=== PATIENT | female | born 1975 | race Caucasian/White ===

== ENCOUNTER 2017-08-25 10:50 | Outpatient (RCR) | payer OTHER ==
[2017-08-18 11:03] VITALS: BP 126/83
[2017-08-18 11:36] LABS: PLATELET COUNT, AUTOMATED 137 K/uL (150-450)
[~2017-08-25 10:50] MED LIST: GLUC500T22 PO; NITR-105 PO; TAMO20TA24 PO
[2017-08-25 10:57] VITALS: BP 115/79
--- NOTE | 2017-08-25 19:01 | ONCOLOGY FOLLOW UP NOTE ---
EVENT DATE: August 25, 2017 DIAGNOSES Stage IA (pT1c pN0 cM0) right breast carcinoma. CHIEF COMPLAINT Patient is here today for followup of her right breast cancer. ONCOLOGY HISTORY Patient is a 42-year-old female who was diagnosed in 2013 with right breast cancer after an abnormal mammogram. 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 I do not have any records, but all of this information from the patient. According to the patient her tumor size was nearly 1 cm in size and sentinel lymph node was negative for metastasis. Pathological marker showed positive ER/SD and negative HER2/coral. Her grade of the tumor was grade 2/3. Patient had adjuvant radiation therapy followed by adjuvant hormonal therapy with tamoxifen started in December 2013. As per patient , she developed a skin rash with coated tamoxifen, and after that with change of the brand of tamoxifen she did fine. She has some problems with tamoxifen like gaining weight, development of ovarian cyst and breast bone pain some times , but other than that she is doing fine. HISTORY OF PRESENT ILLNESS Patient is here today for followup of her left breast cancer. She is doing fine , except that she has a tough time to lose weight. She continues to gain weight with the treatment with Tamoxifen. She is complaining of recurrent pain in her right chest wall after her breast surgery, but other than that actually she is doing very well. PAST MEDICAL HISTORY Insignificant except for right breast cancer. PAST SURGICAL HISTORY Back surgery in 2001, abdominoplasty in 2008, lumpectomy and sentinel lymph node biopsy of the right side in 2013. FAMILY HISTORY Negative for cancer or blood diseases. SOCIAL HISTORY Patient is with two children. 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 Denies any abuse of tobacco or illicit drugs. She drinks wine on a every basis. CURRENT MEDICATIONS 1. Glucosamine. 2. Supplement for her nails. 3. Tamoxifen 20 mg daily. ALLERGIES PENICILLIN which causes anaphylaxis. SULFA which causes skin rash. REVIEW OF SYSTEMS CONSTITUTIONAL: Patient continues to complain of gaining weight. HEENT: Ears: No tinnitus or hearing problem. Nose: No nasal discharge or epistaxis. Throat: No sore throat or mouth ulcers. Eyes: No diplopia or visual changes. RESPIRATORY: No shortness of breath. No cough, expectoration or hemoptysis. CARDIOVASCULAR: No chest pain, orthopnea, or paroxysmal nocturnal dyspnea (PND) . No edema. No palpitations. GASTROINTESTINAL: She has occasional diarrhea. GENITOURINARY: No hematuria or dysuria. MUSCULOSKELETAL: She has recurrent pain in her right chest wall after her breast surgery. NEUROLOGICAL: No tingling or numbness in the hands or feet. No headaches or convulsions. HEMATOLOGICAL: She bruises easily. SKIN: No skin rash or lumps. PSYCHIATRIC: No anxiety or depression. PHYSICAL EXAMINATION GENERAL: Looks stable. Well-developed, well-nourished, and in no acute distress. VITAL SIGNS: Blood pressure 115/79, pulse 76 per minute, respirations 16 per minute, temperature 99.4, pulse ox 92% on room air. HEENT: Head: Atraumatic. No sinus tenderness to palpation. Eyes: No icterus or conjunctivitis. Mouth and throat: No oral thrush or mucositis. NECK: Supple. No cervical or supraclavicular lymphadenopathy. BREASTS: Both breasts are free of any masses. There is an area around seven to eight o'clock which is a little bit firm in consistency, could be due to a side effect from her previous radiation therapy. LUNGS: Clear to auscultation and percussion bilaterally. HEART: Regular rate and rhythm. No gallops, murmurs, clicks or rubs. ABDOMEN: Soft and lax. No tenderness. No hepatosplenomegaly. No masses. EXTREMITIES: No cyanosis, clubbing or edema. LYMPHATICS: No peripheral lymphadenopathy. NEUROLOGICAL: Conscious, alert and oriented times three. No focal motor or sensory deficits. PSYCHIATRIC: Mood and affect appear normal. SKIN: No skin rash, bruise or purpuric eruption. DIAGNOSTIC DATA CBC showed a white count of 5.9, hemoglobin 15.1, hematocrit 41.7, platelets 137 ,000. Chem panel totally normal, except BUN 19. CA 15-3 is normal at 9, CA 27- 29 is normal at 10.5, and CA-125 is normal at 26. ASSESSMENT Stage IA (pT1c pN0 cM0) right breast carcinoma status post lumpectomy and sentinel lymph node biopsy for 1 cm invasive cancer ER/SD positive, HER2/coral negative and negative sentinel lymph node. Patient received adjuvant radiation therapy and started adjuvant hormonal therapy with tamoxifen since December 2013. She is complaining of having weight gain, and she had also ovarian cyst from Tamoxifen use. She is still perimenopausal and her periods are regular. In her case, because of the weight gain which affects the patient's emotions, I am planning to continue Tamoxifen for a total of five years. She has also some problem with her knees, and I advised the patient to see an orthopedic surgeon in town here to see if she can have certain exercises she can do to help her to lose weight, because I see this is affecting her a lot. In the meantime, I am planning to continue Tamoxifen, and I will see her again in four months with CBC , chem panel, CA 15-3, CA 27-29 and CA-125.. Patient currently in complete remission. She had a mild elevation of CA-125 in the past, and for this reason I am planning to monitor that marker in the future. PLAN 1. Continue followup. 2. Patient to return in four months with CBC, chem panel, CA 15-3, CA 27-29 and CA-125. 3. Continue tamoxifen 20 mg daily. 4. Patient is to contact us for any new concern or complaint. [facility] HOSPITALChuy
== END 2017-09-02 16:20 | disposition home or self-care (01) ==
LOC: ONC 10:50
PROVIDERS: ATTEND Nurse Practitioner Family
DX: C50.911 Malignant neoplasm of unspecified site of right female breast (principal); Z17.0 Estrogen receptor positive status [ER+]; Z92.3 Personal history of irradiation; Z79.810 Long term (current) use of selective estrogen receptor modulators (SERMs)
CPT/HCPCS: 36415; 82040; 82247; 82310; 82374; 82435; 82565; 82947; 84075; 84132; 84155; 84295; 84450; 84460; 84520; 85025; 86300; 86304; 99212

== ENCOUNTER 2018-01-05 10:58 | Outpatient (RCR) | payer OTHER ==
[2017-12-29 10:55] VITALS: BP 120/82
[2017-12-29 11:28] LABS: PLATELET COUNT, AUTOMATED 174 K/uL (150-450)
[2018-01-05 11:07] VITALS: BP 123/81
--- NOTE | 2018-01-05 17:36 | EL-TARABILY ONCOLOGY NOTE ---
EVENT DATE: January 05, 2018 DIAGNOSES Stage IA ([id number]) right breast carcinoma. CHIEF COMPLAINT Patient is here today for followup of her right breast cancer. ONCOLOGY HISTORY Patient is a 42-year-old female who was diagnosed in 2013 with right breast cancer after an abnormal mammogram. Patient ended up having right breast lumpectomy which was extensive because of the presence of another area of DCIS beside the invasive cancer. I do not have any records, but all of this information is from the patient. According to the patient, her tumor size was nearly 1 cm in size, and sentinel lymph node was negative for metastasis. Pathological marker showed positive ER/[place] and negative HER-2/coral. Her grade of the tumor was grade 2/3. Patient had adjuvant radiation therapy, followed by adjuvant hormonal therapy with tamoxifen started in December 2013. As per patient, she developed a skin rash with coated tamoxifen, and after that with change of the brand of tamoxifen, she did fine. She has some problems with tamoxifen, like gaining weight, development of ovarian cyst, and breast bone pain sometimes, but other than that, she is doing fine. HISTORY OF PRESENT ILLNESS Patient is here today for followup of her left breast cancer. She is doing fine currently. Regarding her menses, she had heavy periods for four days every six weeks since she has started on tamoxifen, but denies any change in the frequency. PAST MEDICAL HISTORY Insignificant except for right breast cancer. PAST SURGICAL HISTORY 1. Back surgery in 2001. 2. Abdominoplasty in 2008. 3. Lumpectomy and sentinel lymph node biopsy of the right side in 2013. FAMILY HISTORY Negative for cancer or blood diseases. SOCIAL HISTORY Patient is with two children. 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 Denies any abuse of tobacco or illicit drugs. She drinks wine on a everyday basis. CURRENT MEDICATIONS 1. Glucosamine. 2. Supplement for her nails. 3. Tamoxifen 20 mg daily. ALLERGIES 1. PENICILLIN which causes anaphylaxis. 2. SULFA which causes skin rash. REVIEW OF SYSTEMS CONSTITUTIONAL: Patient continues to complain of gaining weight. HEENT: Ears: No tinnitus or hearing problem. Nose: No nasal discharge or epistaxis. Throat: No sore throat or mouth ulcers. Eyes: No diplopia or visual changes. RESPIRATORY: No shortness of breath. No cough, expectoration, or hemoptysis. CARDIOVASCULAR: No chest pain, orthopnea, or paroxysmal nocturnal dyspnea (PND). No edema. No palpitations. GASTROINTESTINAL: She has occasional diarrhea. GENITOURINARY: Patient has heavy periods for four days every six weeks since she started on tamoxifen. MUSCULOSKELETAL: She has recurrent pain in her right chest wall after her breast surgery. NEUROLOGICAL: No tingling or numbness in the hands or feet. No headaches or convulsions. HEMATOLOGICAL: She bruises easily. SKIN: No skin rash or lumps. PSYCHIATRIC: No anxiety or depression. PHYSICAL EXAMINATION GENERAL: Looks stable. Well developed, well nourished, and in no acute distress. VITAL SIGNS: Blood pressure 123/81, pulse 67 per minute, respirations 16 per minute, temperature 97.4, pulse ox 95% on room air. HEENT: Head: Atraumatic. No sinus tenderness to palpation. Eyes: No icterus or conjunctivitis. Mouth and throat: No oral thrush or mucositis. NECK: Supple. No cervical or supraclavicular lymphadenopathy. BREASTS: Both breasts are free of any masses. There is an area around seven to eight o'clock which is a little bit firm in consistency, could be due to a side effect from her previous radiation therapy. LUNGS: Clear to auscultation and percussion bilaterally. HEART: Regular rate and rhythm. No gallops, murmurs, clicks, or rubs. ABDOMEN: Soft and lax. No tenderness. No hepatosplenomegaly. No masses. EXTREMITIES: No cyanosis, clubbing, or edema. LYMPHATICS: No peripheral lymphadenopathy. NEUROLOGICAL: Conscious, alert, and oriented times three. No focal motor or sensory deficits. PSYCHIATRIC: Mood and affect appear normal. SKIN: No skin rash, bruise, or purpuric eruption. DIAGNOSTIC DATA CBC showed a white count 6.1, hemoglobin 14.9, hematocrit 42.5, platelets 174,000. Chem panel totally normal. CA15-3 is 11. CA27.29 is normal at 10.8. CA125 is 43 which is up from 26. ASSESSMENT 1. Stage IA ([id number]) right breast cancer, status post lumpectomy and sentinel lymph node biopsy for 1 cm invasive cancer, ER/WY positive, HER-2/coral negative, and negative sentinel lymph node. Patient received adjuvant radiation therapy and started adjuvant hormonal therapy with tamoxifen December 2013. She is complaining of having weight gain, and she has also ovarian cyst from tamoxifen use. She is still perimenopausal, and her periods are regular every six weeks. I talked to her today regarding the indication for tamoxifen now is for 10 years rather than five years, and if she reaches menopause at any time, we are going to switch to one of the aromatase inhibitors. Her CA15-3 and CA27.29 are within the normal range. I am planning to see her again in four months with CBC, chemistry panel, CA15-3, and CA27.29. 2. High CA125 in the past, and currently, her CA125 romie from 26 on the last visit to currently 43. I am planning to check vaginal ultrasound, and the patient is going to see her avionics supervisor in a week's time. She will receive the gynecologic evaluation after the vaginal ultrasound. PLAN 1. Continue followup. 2. Patient to return in four months with CBC, chem panel, CA15-3, CA27.29, and CA125. 3. Continue tamoxifen 20 mg daily. 4. Schedule for vaginal ultrasound. 5. Schedule for bilateral mammography on the January when she is due for that. 6. Patient to contact us for any new concern or complaints. JUAN PABLO
== END 2018-03-06 ==
LOC: ONC 10:58
PROVIDERS: ATTEND Nurse Practitioner Family
DX: C50.911 Malignant neoplasm of unspecified site of right female breast (principal); Z17.0 Estrogen receptor positive status [ER+]; Z92.3 Personal history of irradiation; Z79.810 Long term (current) use of selective estrogen receptor modulators (SERMs); K59.00 Constipation, unspecified; R63.5 Abnormal weight gain
CPT/HCPCS: 36415; 82040; 82247; 82310; 82374; 82435; 82565; 82947; 84075; 84132; 84155; 84295; 84443; 84450; 84460; 84520; 85025; 86300; 86304; 99212

== ENCOUNTER → 2018-01-06 | Outpatient (CLI) | payer OTHER ==
--- NOTE | 2018-01-06 17:22 | RADIOLOGY IMAGING REPORT ---
FACILITY: [facility] PATIENT NAME: Mirian Montgomery : 1975 MR: [id number] V: [id number] EXAM DATE: ORDERING PHYSICIAN: JANEY PEREZ TECHNOLOGIST: [facility] Patient: Mirian Montgomery : 1975 Visit/Account:[id number] Date of Sevice: 01/06/2018 Transvaginal pelvic ultrasound INDICATION: Increasing cancer antigen. COMPARISON: None Available FINDINGS: Uterus measures 9.5 x 5.4 x 6.9 cm. Double wall endometrial stripe measures up to 12 mm There is no free fluid in the cul-de-sac. Urinary bladder is empty. Pelvic vessels appear unremarkable on this examination. Right ovary measures 3.2 x 3.2 x 2.5 cm and shows normal blood flow and contains abdominal follicle v ersus simple cyst measuring up to 2 cm. Left ovary measures 3.3 x 3.0 x 2.4 cm and shows normal blood flow and contains a small hemorrhagic c yst measuring up to 2.6 and meter's. IMPRESSION: 1. No findings to explain the patient's rising cancer antigen. Report Dictated By: Sushant Grullon MD at 01/06/2018 5:17 PM Report E-Signed By: Sushant Grullon MD at 01/06/2018 5:19 PM WSN:[id number]
== END ==
LOC: US 07:00
PROVIDERS: ATTEND Internal Medicine Hematology
DX: Z85.3 Personal history of malignant neoplasm of breast (principal)
CPT/HCPCS: 76830

== ENCOUNTER → 2018-02-03 | Outpatient (CLI) | payer OTHER ==
--- NOTE | 2018-02-03 14:42 | RADIOLOGY IMAGING REPORT ---
[place] [facility] [place] SUNSHINE CARNES : [id number] MR: [id number] V: [id number] EXAM DATE: ORDERING PHYSICIAN: JANEY PEREZ TECHNOLOGIST: Shasta Lee PROCEDURE:BILATERAL DIGITAL SCREENING MAMMOGRAM WITH CAD ASSISTED INTERPRETATION & 3D TOMOSYNTHESIS COMPARISON:Prior mammograms 02/02/17, 01/26/16, 02/18/15. INDICATIONS:SCREENING FINDINGS: Small to moderate amount of fibroglandular tissue is seen throughout the breasts. The parenchymal pattern has remained stable allowing for difference in mammographic technique & patient positioning. There is no evidence of malignant appearing mass, malignant appearing calcifications or other secondary sign of malignancy in either breast. DIAGNOSTIC CATEGORY 1--NEGATIVE. RECOMMENDATIONS: ROUTINE MAMMOGRAM AND CLINICAL EVALUATION. IMPRESSION: BIRADS 1: Negative. No significant abnormality is seen. Dictated by: Guadalupe Henriquez M.D. on 02/03/2018 at 13:59 Transcribed by: MISA on 02/03/2018 at 14:05 Approved by: Guadalupe Henriquez M.D. on 02/03/2018 at 14:41 [facility]
== END ==
LOC: MAMO 04:32
PROVIDERS: ATTEND Internal Medicine Hematology
DX: Z12.31 Encounter for screening mammogram for malignant neoplasm of breast (principal)
CPT/HCPCS: 77063; 77067

== ENCOUNTER 2018-05-04 11:21 | Outpatient (RCR) | payer OTHER ==
[2018-04-27 11:29] VITALS: BP 142/87
[2018-04-27 11:41] LABS: PLATELET COUNT, AUTOMATED 170 K/uL (150-450)
[2018-05-04 11:27] VITALS: BP 115/84
--- NOTE | 2018-05-04 16:07 | EL-TARABILY ONCOLOGY NOTE ---
EVENT DATE: May 04, 2018 DIAGNOSES Stage IA (pT1c pN0 cM0) right breast carcinoma. CHIEF COMPLAINT Patient is here today for followup of her right breast cancer. ONCOLOGY HISTORY Patient is a 42-year-old female who was diagnosed in 2013 with right breast cancer after an abnormal mammogram. Patient ended up having right breast lumpectomy which was extensive because of the presence of another area of DCIS beside the invasive cancer. I do not have any records, but all of this information is from the patient. According to the patient, her tumor size was nearly 1 cm in size, and sentinel lymph node was negative for metastasis. Pathological marker showed positive ER/NV and negative HER-2/coral. Her grade of the tumor was grade 2/3. Patient had adjuvant radiation therapy, followed by adjuvant hormonal therapy with tamoxifen started in December 2013. As per patient, she developed a skin rash with coated tamoxifen, and after that with change of the brand of tamoxifen, she did fine. She has some problems with tamoxifen, like gaining weight, development of ovarian cyst, and breast bone pain sometimes, but other than that, she is doing fine. HISTORY OF PRESENT ILLNESS Patient is here today for followup of her left breast cancer. She is doing fine currently, and apart from her complaint of gaining weight with Tamiflu and having pain in her knees, she does not have any other problems. She denies any hot flashes. PAST MEDICAL HISTORY Insignificant except for right breast cancer. PAST SURGICAL HISTORY 1. Back surgery in 2001. 2. Abdominoplasty in 2008. 3. Lumpectomy and sentinel lymph node biopsy of the right side in 2013. FAMILY HISTORY Negative for cancer or blood diseases. SOCIAL HISTORY Patient is with two children. 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 Denies any abuse of tobacco or illicit drugs. She drinks wine on a everyday basis. CURRENT MEDICATIONS 1. Glucosamine. 2. Supplement for her nails. 3. Tamoxifen 20 mg daily. ALLERGIES 1. PENICILLIN which causes anaphylaxis. 2. SULFA which causes skin rash. REVIEW OF SYSTEMS CONSTITUTIONAL: No appetite or weight change. No fever, chills, or sweating. No recent infection. HEENT: Ears: No tinnitus or hearing problem. Nose: No nasal discharge or epistaxis. Throat: No sore throat or mouth ulcers. Eyes: No diplopia or visual changes. RESPIRATORY: No shortness of breath. No cough, expectoration, or hemoptysis. CARDIOVASCULAR: No chest pain, orthopnea, or paroxysmal nocturnal dyspnea (PND). No edema. No palpitations. GASTROINTESTINAL: No nausea or vomiting. No diarrhea or constipation. No change in bowel movements. No heartburn or swallowing difficulties. No abdominal pain. No jaundice. No hematemesis, melena, or rectal bleeding. GENITOURINARY: No hematuria or dysuria. MUSCULOSKELETAL: She has pain in her knees. NEUROLOGICAL: No tingling or numbness in the hands or feet. No headaches or convulsions. HEMATOLOGIC/LYMPHATIC: No bleeding or easy bruising. No weakness or fatigue. No enlarged lymph nodes. SKIN: No skin rash or lumps. PSYCHIATRIC: No anxiety or depression. PHYSICAL EXAMINATION GENERAL: Looks stable. Well developed, well nourished, and in no acute distress. VITAL SIGNS: Blood pressure 115/84, pulse 68 per minute, respirations 16 per minute, temperature 97.7, pulse ox 95% on room air. HEENT: Head: Atraumatic. No sinus tenderness to palpation. Eyes: No icterus or conjunctivitis. Mouth and throat: No oral thrush or mucositis. NECK: Supple. No cervical or supraclavicular lymphadenopathy. LUNGS: Clear to auscultation and percussion bilaterally. HEART: Regular rate and rhythm. No gallops, murmurs, clicks, or rubs. ABDOMEN: Soft and lax. No tenderness. No hepatosplenomegaly. No masses. EXTREMITIES: No cyanosis, clubbing, or edema. LYMPHATICS: No peripheral lymphadenopathy. NEUROLOGICAL: Conscious, alert, and oriented times three. No focal motor or sensory deficits. PSYCHIATRIC: Mood and affect appear normal. SKIN: No skin rash, bruise, or purpuric eruption. DIAGNOSTIC DATA CBC showed white count 6.2, hemoglobin 15.1, hematocrit 44.3, platelets 170,000. Chem panel is normal. CA-125 is 37, CA27.29 is 12.2, and CA15-3 is 10. ASSESSMENT 1. Stage IA (pT1c pN0 cM0) right breast cancer, status post lumpectomy and sentinel lymph node biopsy for 1 cm invasive cancer, ER/NV positive, HER-2/coral negative, and negative sentinel lymph node. Patient received adjuvant radiation therapy and started adjuvant hormonal therapy with tamoxifen 20 mg daily December 2013. She is complaining of having weight gain with tamoxifen, and the patient decided to stop her treatment after five years of treatment. She had also an ovarian cyst from her tamoxifen use beside the weight gain. Patient is still perimenopausal. I am planning to see her again in six months from now, and we are going to talk at that time about discontinuing the drug. [place], and there will be difficulty to get the specimen to check the breast cancer index. Her CA15-3 and CA27.29 are really within the normal range. I am planning to see her in six months with CBC, chemistry panel, CA27.29, and CA15-3. 2. High CA-125 in the past, and the patient had an ultrasound three months ago. The patient is followed by her art tracer, and as per her art tracer, she has a normal ultrasound and advised her not to check her CA-125 again, and the patient would like to do that, so we will stop checking it according to her wish. PLAN 1. Continue tamoxifen 20 mg daily. 2. Patient to return in six months with CBC, chem panel, CA27.29, and CA15-3. 3. Patient to contact us for any new concerns or complaints. JUAN PABLO
[2018-06-06] MEDS ORDERED: ONDA4TAB9 PO (02:29)
== END 2018-06-19 12:46 | disposition home or self-care (01) ==
LOC: ONC 11:21
PROVIDERS: ATTEND Nurse Practitioner Family
DX: C50.911 Malignant neoplasm of unspecified site of right female breast (principal); Z17.0 Estrogen receptor positive status [ER+]; Z92.3 Personal history of irradiation; Z79.810 Long term (current) use of selective estrogen receptor modulators (SERMs); K59.00 Constipation, unspecified; R63.5 Abnormal weight gain
CPT/HCPCS: 36415; 82040; 82247; 82310; 82374; 82435; 82565; 82947; 84075; 84132; 84155; 84295; 84450; 84460; 84520; 85025; 86300; 86304; 99212

== ENCOUNTER 2018-06-06 01:11 | Emergency (ER) | payer OTHER ==
--- NOTE | 2018-06-06 01:17 | ER Report ---
History and Physical Time Seen By MD: 01:14 HPI/ROS CHIEF COMPLAINT: Dizziness, vomiting HISTORY OF PRESENT ILLNESS: 42-year-old female with a history of breast cancer 5 years survival notes a severe cold 2 weeks ago. She notes some residual s ymptoms in her left ear plugging and blocking. Tonight at 7 PM she began to feel vertigo, severe dizziness. She's been vomiting ever since. She notes the room is spinning. He is unable to stand and walk with a steady gait. She notes no headache, blurry vision or speech difficulty. She notes no numbness, tingling or weakness in any of her arms or legs. She notes the symptoms get worse with rapid head movement. REVIEW OF SYSTEMS: Respiratory: No cough, no dyspnea. Cardiovascular: No chest pain, no palpitations. Gastrointestinal: No vomiting, no abdominal pain. Musculoskeletal: No back pain. Allergies: Coded Allergies: Penicillins (Verified Allergy, Severe, Anaphalaxis, 06/06/18) Sulfa (Sulfonamide Antibiotics) (Verified Allergy, Mild, skin reaction, 06/06/18) Home Meds Active Scripts Ondansetron 4 Mg Odt (ONDANSETRON 4 MG ODT) 4 Mg Tab.rapdis, 4 MG PO Q6H PRN for NAUSEA/PAIN, #15 TAB Prov:RANULFOSHANONSusan Barber DO 06/06/18 Reported Medications Glucosamine Hcl (GLUCOSAMINE HCL) 500 Mg Tablet, 500 MG PO BID 12/10/16 Tamoxifen Citrate (TAMOXIFEN CITRATE) 20 Mg Tablet, 20 MG PO QDAY 12/10/16 Past Medical/Surgical History Breast cancer survivor 5 years Reviewed Nurses Notes: Yes Old Medical Records Reviewed: Yes Hx Smoking: No Smoking Status: Never Smoker Constitutional Vital Sign - Last 24 Hours 06/06/18 06/06/18 06/06/18 06/06/18 01:11 01:16 01:18 01:26 Temp 97.7 Pulse ??? 63 62 Resp 18 B/P (MAP) 119/67 119/67 (84) Pulse Ox 92 O2 Delivery Room Air 06/06/18 06/06/18 06/06/18 06/06/18 01:30 01:41 01:54 01:56 Pulse 61 62 Resp 24 19 B/P (MAP) 121/77 (92) 121/73 (89) Pulse Ox 98 94 1/22/06/06/18 06/06/18 06/06/18 02:00 02:11 02:26 02:30 Pulse 69 65 Resp 9 34 B/P (MAP) 102/59 (73) 106/67 (80) Pulse Ox 93 95 06/06/18 02:41 Pulse 63 Resp 27 Pulse Ox 90 Physical Exam General Appearance: The patient is alert, has no immediate need for airway protection and no current signs of toxicity. Vital signs stable, afebrile, pale appearing, skin warm and dry HEENT: Pupils equal and round no injection. TMs normal, oropharynx no redness or exudate, mucous. Membranes are moist Respiratory: Chest is non tender, lungs are clear to auscultation. Cardiac: regular rate and rhythm Gastrointestinal: Abdomen is soft and non tender, no masses, bowel sounds normal. Musculoskeletal: Neck: Neck is supple and non tender. No lymphadenopathy, no meningismus Extremities have full range of motion and are non tender. Skin: No rashes or lesions. Neuro: Alert and oriented 3, cranial nerves II through XII intact motor 5/5 gr ips, sensory intact to light touch 4, cerebellum grossly intact DIFFERENTIAL DIAGNOSIS: After history and physical exam differential diagnosis was considered for dizziness including but not limited to peripheral and central causes of vertigo, orthostatic causes including dehydration, and blood loss. Medical Decision Making Data Points Result Diagram: 06/06/1813106/06/18131 Laboratory Hematology Test 06/06/18 01:32 Red Blood Count 4.68 M/uL (4.17-5.56) Mean Corpuscular Volume 92.9 fL (80.0-96.0) Mean Corpuscular Hemoglobin 30.3 pg (26.0-33.0) Mean Corpuscular Hemoglobin Concent 32.6 g/dL (32.0-36.0) Red Cell Distribution Width 13.2 % (11.5-14.5) Mean Platelet Volume 10.5 fL (7.2-11.1) Neutrophils (%) (Auto) 76.6 % (39.4-72.5) Lymphocytes (%) (Auto) 19.9 % (17.6-49.6) Monocytes (%) (Auto) 2.5 % (4.1-12.4) Eosinophils (%) (Auto) 0.1 % (0.4-6.7) Basophils (%) (Auto) 0.9 % (0.3-1.4) Nucleated RBC Relative Count (auto) 0.1 /100WBC Neutrophils # (Auto) 6.0 K/uL (2.0-7.4) Lymphocytes # (Auto) 1.5 K/uL (1.3-3.6) Monocytes # (Auto) 0.2 K/uL (0.3-1.0) Eosinophils # (Auto) 0.0 K/uL (0.0-0.5) Basophils # (Auto) 0.1 K/uL (0.0-0.1) Nucleated RBC Absolute Count (auto) 0.00 K/uL Sodium Level 139 mmol/L (137-145) Potassium Level 3.5 mmol/L (3.5-5.0) Chloride Level 107 mmol/L (98-107) Carbon Dioxide Level 20 mmol/L (22-31) Blood Urea Nitrogen 12 mg/dl (7-18) Creatinine 0.70 mg/dl (0.52-1.04) Glomerular Filtration Rate Calc > 60.0 Random Glucose 128 mg/dl (75-110) Calcium Level 8.8 mg/dl (8.4-10.2) Total Bilirubin 0.2 mg/dl (0.2-1.3) Aspartate Amino Transf (AST/SGOT) 23 U/L (0-35) Alanine Aminotransferase (ALT/SGPT) 23 U/L (0-56) Alkaline Phosphatase 47 U/L (0-126) Total Protein 6.9 g/dl (6.3-8.2) Albumin 3.7 g/dl (3.5-5.0) Human Chorionic Gonadotropin, Qual Negative (NEGATIVE) Chemistry Test 06/06/18 01:32 White Blood Count 7.8 k/uL (4.5-11.0) Red Blood Count 4.68 M/uL (4.17-5.56) Hemoglobin 14.2 g/dL (12.0-16.0) Hematocrit 43.5 % (34.0-47.0) Mean Corpuscular Volume 92.9 fL (80.0-96.0) Mean Corpuscular Hemoglobin 30.3 pg (26.0-33.0) Mean Corpuscular Hemoglobin Concent 32.6 g/dL (32.0-36.0) Red Cell Distribution Width 13.2 % (11.5-14.5) Platelet Count 140 K/uL (150-450) Mean Platelet Volume 10.5 fL (7.2-11.1) Neutrophils (%) (Auto) 76.6 % (39.4-72.5) Lymphocytes (%) (Auto) 19.9 % (17.6-49.6) Monocytes (%) (Auto) 2.5 % (4.1-12.4) Eosinophils (%) (Auto) 0.1 % (0.4-6.7) Basophils (%) (Auto) 0.9 % (0.3-1.4) Nucleated RBC Relative Count (auto) 0.1 /100WBC Neutrophils # (Auto) 6.0 K/uL (2.0-7.4) Lymphocytes # (Auto) 1.5 K/uL (1.3-3.6) Monocytes # (Auto) 0.2 K/uL (0.3-1.0) Eosinophils # (Auto) 0.0 K/uL (0.0-0.5) Basophils # (Auto) 0.1 K/uL (0.0-0.1) Nucleated RBC Absolute Count (auto) 0.00 K/uL Glomerular Filtration Rate Calc > 60.0 Calcium Level 8.8 mg/dl (8.4-10.2) Total Bilirubin 0.2 mg/dl (0.2-1.3) Aspartate Amino Transf (AST/SGOT) 23 U/L (0-35) Alanine Aminotransferase (ALT/SGPT) 23 U/L (0-56) Alkaline Phosphatase 47 U/L (0-126) Total Protein 6.9 g/dl (6.3-8.2) Albumin 3.7 g/dl (3.5-5.0) Human Chorionic Gonadotropin, Qual Negative (NEGATIVE) EKG/Imaging Imaging Results: CT scan of the head without contrast was obtained. The results of the study are CT BRAIN NO CONTRAST HISTORY: Severe vertigo since 1900 hours. Unable to walk. COMPARISON: None. TECHNIQUE: Axial images were obtained from the skull base to the vertex without contrast. Sagittal and coronal reformats were performed. One of the following dose optimization techniques was utilized in the performance of this exam: Automated exposure control; adjustment of the mA and/or kV according to the patient's size; or use of an iterative reconstruction technique. Specific details can be referenced in the facility's radiology CT exam operational policy. CONTRAST: None. FINDINGS: Brain: No intracranial hemorrhage, mass, or edema. The internal auditory canals and the middle and inner ear structures have a normal appearance. Ventricles and sulci: Sulci are normal. Ventricular size and configuration is normal. Osseous structures: Intact. Paranasal sinuses and mastoids: There are air-fluid levels within the bilateral maxillary and sphenoid sinuses, compatible with active sinus disease. There is mild mucosal thickening of the maxillary and ethmoid sinuses. Posterior rightward nasal septal deviation and rightward nasal septal spur. Anteriorly, the nasal septum is deviated to the left. Mastoids are clear. Orbits and soft tissues: Normal. IMPRESSION: 1. No acute intracranial abnormality or findings to account for patient's symptoms. 2. Active sinus disease. The study was read by the radiologist. I viewed the images myself on the PACS system. ED Course/Re-evaluation Clinical Indication for ER IV: Hydration, IV Access ED Course Patient was admitted to an examination room. H&P was done. The differential diagnoses was considered. Patient was treated with IV Zofran and meclizine 25 mg by mouth. She given 1 L of saline. A head CT was performed as well as diagnostic laboratory studies, which were unremarkable. Her head CT was also unremarkable except for some sinus inflammation. Patient's advised Mucinex D, ibuprofen and meclizine. She is given of shift for Zofran. She is discharged home with 1. Scopolamine patch to use if her vomiting should become uncontrollable. Patient advised to follow-up with ENT if unimproved in 5-7 days. Decision to Disposition Date: Jun 06, 2018 Decision to Disposition Time: 02:26 Depart Departure Latest Vital Signs Vital Signs Date Time Temp Pulse Resp B/P (MAP) Pulse Ox O2 Delivery O2 Flow Rate FiO2 06/06/18 02:41 63 27 90 06/06/18 02:30 106/67 (80) 06/06/18 01:16 97.7 Room Air Impression: Primary Impression: Vertigo Additional Impressions: Labyrinthitis Vomiting History of breast cancer Condition: Improved Disposition: HOME OR SELF-CARE Referrals: ELMA TRAVIS APRN SURVEY SUPERVISOR-C (PCP) JORGE A MORGAN JR, MD New Scripts Ondansetron 4 Mg Odt (ONDANSETRON 4 MG ODT) 4 Mg Tab.rapdis 4 MG PO Q6H PRN for NAUSEA/PAIN, #15 TAB Prov: FELICIA WINCHESTER DO 06/06/18 Patient Instructions: Labyrinthitis (ED), Vertigo (ED) Additional Instructions: Take meclizine 25 mg every 6-8 hours as needed for dizziness Take Mucinex D twice daily to decongest her sinuses Take ibuprofen 200 mg 3 tablets 3 times a day to reduce inflammation in your labyrinth's Follow-up with Dr. Jorge A Morgan if unimproved in 5-7 days Problem Qualifiers Additional Impressions: Labyrinthitis Laterality: left Qualified Codes: H83.02 - Labyrinthitis, left ear Vomiting Vomiting type: unspecified Vomiting Intractability: intractable Nausea presence: with nausea Qualified Codes: R11.2 - Nausea with vomiting, unspecified FELICIA WINCHESTER DO Jun 06, 2018 01:17
[2018-06-06] MEDS ORDERED: NS(*) 0.9% 1000 ML BAG 1,000 ML IV ONE (01:27)
[2018-06-06] MEDS ORDERED: ONDANSETRON 4 MG/2 ML VIAL IVP ONE (01:30)
[2018-06-06] MEDS ORDERED: MECLIZINE HCL 25 MG TAB PO ONE (01:30)
[2018-06-06 01:46] LABS: PLATELET COUNT, AUTOMATED 140 K/uL (150-450)
--- NOTE | 2018-06-06 02:18 | RADIOLOGY IMAGING REPORT ---
FACILITY: [facility] - [place] PATIENT NAME: Mirian Montgomery : 1975 MR: [id number] V: [id number] EXAM DATE: ORDERING PHYSICIAN: FELICIA WINCHESTER TECHNOLOGIST: Location: [facility] [place] Patient: Mirian Montgomery : 1975 Visit/Account:[id number] Date of Sevice: 06/06/2018 CT BRAIN NO CONTRAST HISTORY: Severe vertigo since 1900 hours. Unable to walk. COMPARISON: None. TECHNIQUE: Axial images were obtained from the skull base to the vertex without contrast. Sagittal an d coronal reformats were performed. One of the following dose optimization techniques was utilized in the performance of this exam: Autom ated exposure control; adjustment of the mA and/or kV according to the patient's size; or use of an i terative reconstruction technique. Specific details can be referenced in the facility's radiology CT exam operational policy. CONTRAST: None. FINDINGS: Brain: No intracranial hemorrhage, mass, or edema. The internal auditory canals and the middle and in ner ear structures have a normal appearance. Ventricles and sulci: Sulci are normal. Ventricular size and configuration is normal. Osseous structures: Intact. Paranasal sinuses and mastoids: There are air-fluid levels within the bilateral maxillary and sphenoi d sinuses, compatible with active sinus disease. There is mild mucosal thickening of the maxillary an d ethmoid sinuses. Posterior rightward nasal septal deviation and rightward nasal septal spur. Anteri jaz, the nasal septum is deviated to the left. Mastoids are clear. Orbits and soft tissues: Normal. IMPRESSION: 1. No acute intracranial abnormality or findings to account for patient's symptoms. 2. Active sinus disease. Report Dictated By: Lidia Fuentes at 06/06/2018 2:07 AM Report E-Signed By: Lidia Fuentes at 06/06/2018 2:13 AM WSN:[id number]
[2018-06-06] MEDS ORDERED: ONDA4TAB9 PO (02:29)
[2018-06-06 02:30] VITALS: BP 106/67
[2018-06-06] MEDS ORDERED: ONDANSETRON 4 MG ODT TH SL ONE (02:35)
[2018-06-06] MEDS ORDERED: SCOPOLAMINE 1.5 MG PATCH TD ONE (02:35)
== END 2018-06-06 02:40 | disposition home or self-care (01) ==
LOC: ER 02:06
DX: H83.02 Labyrinthitis, left ear (principal); R42 Dizziness and giddiness; R11.2 Nausea with vomiting, unspecified; Z85.3 Personal history of malignant neoplasm of breast
CPT/HCPCS: 70450; 84703; 85025; 96361; 96374; 99284; J2405; J7030; J8597; S0119; 82040; 82247; 82310; 82374; 82435; 82565; 82947; 84075; 84132; 84155; 84295; 84450; 84460; 84520